=== PATIENT | female | born 1975 | race Caucasian/White ===

== ENCOUNTER 2017-06-19 15:27 | Emergency (ER) | payer OTHER ==
[~2017-06-19] VITALS: Ht 162.6 cm; Wt 61.2 kg
[~2017-06-19 15:27] MED LIST: ATENOLOL 100MG100 MG; ATENOLOL 25 MG25 M1 PG; ATENOLOL 50MG T50 MG PO; CLEOCIN HCL150 MG PO; CLONIDINE HCL0.3 M3; LORTABELXR PO; MACROBID 100 M100 M1 PO; MEDROLDOSEPACK PO; NOHOMEMEDICATIONS; NORCO 5-325 TA1 EACH PO; PHENERGAN 25 MG25 M1 PO; TRAMADOL 50 MG50 MG PO; TRAZODONE 150150 M1
[2017-06-19] MEDS ORDERED: ULTRAM 50MG TAB50 MG PO (17:42)
[2017-06-19] MEDS ORDERED: CLEOCIN HCL150 MG PO (17:42)
== END 2017-06-19 18:07 | disposition home or self-care (01) ==
LOC: ER 15:27
DX: L03.116 Cellulitis of left lower limb (principal); I10 Essential (primary) hypertension; Z90.49 Acquired absence of other specified parts of digestive tract; Z88.2 Allergy status to sulfonamides; Z88.6 Allergy status to analgesic agent; F17.210 Nicotine dependence, cigarettes, uncomplicated